=== PATIENT | male | born 1985 | race Two or more races ===

== ENCOUNTER 2023-06-22 09:48 | Inpatient (IN) | payer OTHER ==
[2023-06-22 11:11] LABS: BASO % 0.6 % (0-2.0); EOS % 3.5 % (0-4.5); HEMATOCRIT 48.1 % (35.4-49); HEMOGLOBIN 15.7 GM/dL (11.7-16.9); LYMPH % 41.3 % (8-40); MCH 29.6 pg (25.7-33.7); MCHC 32.7 g/dl (32.0-35.9); MEAN CELL VOLUME 90.8 fl (80-96); MEAN PLT VOLUME 10.4 fl (7.5-11.1); MONO % 7.4 % (3.8-10.2); NEUT % 47.2 % (42.8-82.8); PLATELET COUNT 193 10^3/uL (134-434); RDW 14.1 % (11.9-15.9); WHITE BLOOD COUNT 7.3 K/mm3 (4.0-10.0)
[2023-06-22 11:16] LABS: INR 1.07 (0.83-1.09); PROTHROMBIN TIME (PATIENT) 12.4 SEC (9.7-13.0)
[2023-06-22 11:19] LABS: ACTIVATED PTT 28.8 SECONDS (25.2-36.5)
[2023-06-22 11:32] LABS: POTASSIUM 4.1 mmol/L (3.5-5.1)
[2023-06-22 11:34] LABS: BLOOD UREA NITROGEN 11.8 mg/dL (7-18)
[2023-06-22 11:39] LABS: BILIRUBIN,TOTAL 0.2 mg/dL (0.2-1); TOT PROT 7.6 g/dl (6.4-8.2)
[2023-06-22] MEDS ORDERED: LORazepam 2 MG/ML SDV VIAL IVPUSH ONE (12:06)
[2023-06-22] MEDS ORDERED: PHENYTOIN SODIUM 250 MG/5 ML VIAL IVPUSH ONE (12:06)
[2023-06-22] MEDS ORDERED: FOSPHENYTOIN SODIUM 100 MG/2 ML VIAL ONE (12:30)
[2023-06-22] MEDS ORDERED: levETIRAcetam 500 MG/5 ML INJECTION VIAL IVPB ONE ×2 (12:48→13:10)
[2023-06-22 15:07] LABS: URINE APPEARANCE CLEAR; URINE BILIRUBIN NEGATIVE (NEGATIVE); URINE COLOR YELLOW; URINE GLUCOSE (UA) NEGATIVE (NEGATIVE); URINE KETONE NEGATIVE (NEGATIVE); URINE LEUK ESTERASE NEGATIVE (NEGATIVE); URINE NITRITE NEGATIVE (NEGATIVE); URINE PROTEIN TRACE (NEGATIVE)
[2023-06-22 15:15] LABS: MAGNESIUM 2.2 mg/dL (1.8-2.4)
[2023-06-22 15:16] LABS: COCAINE, UR NEGATIVE (NEGATIVE); METHADONE, UR NEGATIVE (NEGATIVE); PHENCYCLIDINE,URINE NEGATIVE (NEGATIVE); URINE AMPHETAMINES NEGATIVE (NEGATIVE); URINE BENZODIAZEPINES NEGATIVE (NEGATIVE)
[2023-06-22 15:17] LABS: URINE BARBITURATES NEGATIVE (NEGATIVE)
[2023-06-22 15:19] LABS: PHOSPHOROUS 2.6 mg/dL (2.5-4.9)
[2023-06-22 15:25] LABS: OPIATES, URI NEGATIVE (NEGATIVE)
[2023-06-22] MEDS ORDERED: LACTATED RINGERS SOLUTION 1,000 ML IV SCH (15:45)
[2023-06-22] MEDS: ENOXAPARIN NA (PORCINE) 40 MG/0.4 ML DISP.SYRIN SQ SCH (17:41)
[2023-06-22 18:36] VITALS: BMI 27.4
[2023-06-22] MEDS: levETIRAcetam 500 MG TABLET (FP) PO SCH (22:40)
[2023-06-22] MEDS: PHENYTOIN NA EXTENDED 100 MG CAPSULE (FP) PO SCH (22:41)
[2023-06-23 08:20] LABS: HEMATOCRIT 45.2 % (35.4-49); MCH 29.6 pg (25.7-33.7); MCHC 33.2 g/dl (32.0-35.9); MEAN CELL VOLUME 89.2 fl (80-96); MEAN PLT VOLUME 9.9 fl (7.5-11.1); PLATELET COUNT 181 10^3/uL (134-434); RBC 5.07 M/mm3 (4.00-5.60); RDW 14.2 % (11.9-15.9); WHITE BLOOD COUNT 7.9 K/mm3 (4.0-10.0)
[2023-06-23 08:29] LABS: POTASSIUM 4.1 mmol/L (3.5-5.1)
[2023-06-23 08:34] LABS: ALBUMIN 3.5 g/dl (3.4-5.0); CALCIUM 8.7 mg/dL (8.5-10.1)
[2023-06-23 08:35] LABS: BLOOD UREA NITROGEN 8.5 mg/dL (7-18); MAGNESIUM 2.2 mg/dL (1.8-2.4)
[2023-06-23 08:37] LABS: CREATININE 0.7 mg/dL (0.55-1.3); PHOSPHOROUS 3.1 mg/dL (2.5-4.9)
[2023-06-23 08:38] LABS: BILIRUBIN,TOTAL 0.2 mg/dL (0.2-1); TOT PROT 6.7 g/dl (6.4-8.2)
[2023-06-23] MEDS ORDERED: ESCITALOPRAM OXALATE 10 MG TABLET PO SCH (10:00)
[2023-06-23] MEDS: PHENYTOIN NA EXTENDED 100 MG CAPSULE (FP) PO SCH (10:02)
[2023-06-23] MEDS: levETIRAcetam 500 MG TABLET (FP) PO SCH (10:03)
[2023-06-23] MEDS: ENOXAPARIN NA (PORCINE) 40 MG/0.4 ML DISP.SYRIN SQ SCH (10:03)
[2023-06-23 13:34] VITALS: RESP 18
[2023-06-23 14:58] VITALS: BP 109/67; PULSE 71; TEMP 98.5
== END 2023-06-23 16:50 | disposition home or self-care (01) | DRG 53 ==
LOC: JER 09:48 → JERBED 12:33 → OBSVTOIN 17:16 → J4S 17:49
PROVIDERS: ADMIT Internal Medicine; ATTEND Internal Medicine
DX: G40.409 Other generalized epilepsy and epileptic syndromes, not intractable, without status epilepticus (principal); I45.10 Unspecified right bundle-branch block; F32.A Depression, unspecified
CPT/HCPCS: 36415; 70450-TC; 71045-TC-FY; 80053; 80185; 80307; 81003; 82550; 82962; 83735; 84100; 84484; 85025; 85027; 85610; 85730; 86850; 86900; 86901; 93005; 93010; 99285-25; G0378